=== PATIENT | female | born 1980 | race Caucasian/White ===

== ENCOUNTER → 2018-08-24 | Outpatient (CLI) | payer OTHER ==
[~2018-08-24] MED LIST: IBUP800; PRENZ; TRAACE; Verotin-Gr Cap1 EACH PO
[2018-08-26 15:06] LABS: HPV 16 Negative (Negative); HPV 18 Negative (Negative); HPV OTHER HR TYPES Positive (Negative)
== END | disposition home or self-care (01) ==
LOC: LAB SHORT 15:59 → LAB 15:59
PROVIDERS: Obstetrics & Gynecology
DX: O30.009 Twin pregnancy, unspecified number of placenta and unspecified number of amniotic sacs, unspecified trimester (principal); O09.529 Supervision of elderly multigravida, unspecified trimester
CPT/HCPCS: 87624; 87625; G0123

== ENCOUNTER 2019-01-04 15:36 | Inpatient (IN) | payer OTHER ==
[~2019-01-04] VITALS: Ht 165.1 cm; Wt 101.0 kg
[2019-01-04] MEDS ORDERED: EXPECTA PRENAT1 EACH (16:01)
[2019-01-04 16:33] LABS: BASOPHILS ABSOLUTE AUTO 0.02 K/mm3 (0.00-0.23); BASOPHILS PERCENT AUTO 0 % (0-2); EOSINOPHILS ABSOLUTE AUTO 0.07 K/mm3 (0.00-0.68); EOSINOPHILS PERCENT AUTO 1 % (0-6); Hematocrit 31.9 % (33.0-51.0); Hemoglobin 10.2 g/dL (11.5-16.0); IMMATURE GRAN ABSOLUTE AUTO 0.02 K/mm3 (0.00-0.10); IMMATURE GRAN PERCENT AUTO 0 % (0-1); LYMPHOCYTES ABSOLUTE AUTO 1.25 K/mm3 (0.84-5.20); LYMPHOCYTES PERCENT AUTO 18 % (21-46); MONOCYTES ABSOLUTE AUTO 0.84 K/mm3 (0.16-1.47); MONOCYTES PERCENT AUTO 12 % (4-13); Mean Corpuscular Volume 88 fL (80-100); Mean Platelet Volume 10.1 fL (9.1-12.4); NEUTROPHILS ABSOLUTE AUTO 4.91 K/mm3 (1.96-9.15); NEUTROPHILS PERCENT AUTO 69 % (41-73); Platelet Count 237 K/mm3 (150-400); RDW Coefficient Variation 16.7 % (11.7-14.2); RDW Standard Deviation 53.3 fL (35.1-46.3); Red Blood Cell Count 3.64 M/mm3 (3.80-5.20); White Blood Cell Count 7.11 K/mm3 (4.00-11.30)
[2019-01-05 05:20] LABS: Hemoglobin 9.6 g/dL (11.5-16.0); Mean Corpuscular HGB 28.1 pg (26.0-34.0); Mean Corpuscular Volume 88 fL (80-100); Mean Platelet Volume 10.5 fL (9.1-12.4); Platelet Count 200 K/mm3 (150-400); RDW Coefficient Variation 16.4 % (11.7-14.2); Red Blood Cell Count 3.42 M/mm3 (3.80-5.20)
--- NOTE | 2019-01-05 09:19 | NUR ---
PATIENT SLEEPING, AWAKENED FOR ASSESSMENT. PATIENT DOES NOT WANT TO BE BOTHERED UNTIL SHE WAKES AND WILL USE CALL LIGHT TO GET NURSE.
[2019-01-05] MEDS ORDERED: IBUP800 PO (13:37)
--- NOTE | 2019-01-05 13:39 | NUR ---
PATIENT REFUSED POST FOLLOW UP
== END 2019-01-05 13:58 | disposition home or self-care (01) | DRG 807 ==
LOC: OBS 15:36 → BC 15:37 → OBS 16:01 → BC 16:07
PROVIDERS: ADMIT Obstetrics & Gynecology
PROC: 10E0XZZ Delivery of Products of Conception, External Approach (ICD-10-PCS; principal; 2019-01-04)
PROC: 0KQM0ZZ Repair Perineum Muscle, Open Approach (ICD-10-PCS; 2019-01-04)
PROC: 3E0R3BZ Introduction of Anesthetic Agent into Spinal Canal, Percutaneous Approach (ICD-10-PCS; 2019-01-04)
DX: O60.14X0 Preterm labor third trimester with preterm delivery third trimester, not applicable or unspecified (principal); Z37.0 Single live birth; Z3A.35 35 weeks gestation of pregnancy; O30.043 Twin pregnancy, dichorionic/diamniotic, third trimester; O99.824 Streptococcus B carrier state complicating childbirth; O70.1 Second degree perineal laceration during delivery
CPT/HCPCS: 36415; 51702; 85025; 85027; 87210; 88307; J0290; J1885; J2001; J2210; J2405; J2590; J3010; J7120

== ENCOUNTER 2019-04-05 08:04 | Day surgery (SDC) | payer OTHER ==
[~2019-04-05] VITALS: Ht 165.1 cm; Wt 90.0 kg
[~2019-04-05 08:04] MED LIST changes: +EXPECTA PRENAT1 EACH; +IBUP800 PO
--- NOTE | 2019-04-05 08:57 | NUR ---
Ambulatory in Day Surgery. Surgical site prepped with 2% Chlorhexidine cloth wipe. History, Chart, Medications and Allergies reviewed before start of procedure. Lungs clear T/O to Auscultation. Patient confirms NPO status and agrees with scheduled surgery. Pre-Op teaching done. Pt verbalizes understanding. Patient States Post-Procedure ride home has been arranged. Patient reports completing Chlorhexadine shower X2 prior to admission to hospital.
--- NOTE | 2019-04-05 11:10 | NUR ---
INTO STEP VIA RAH. PT A&0 X3. DENIES PAIN OR NAUSEA AT THIS TIME. GAUZE X 2 AND STERI STRIPS X 1 TO ABDOMEN C/D/I. EDSON PAD IN PLACE-NO NOTED DRAINAGE.
--- NOTE | 2019-04-05 12:03 | NUR ---
Patient up to Ambulate independently. Gait steady. Dressing to procedure site clean, dry, intact with no visible drainage, swelling, erythema or bruising noted. Discharge instructions reviewed with patient. Patient verbalizes understanding. Copy given to patient to take home.PT AMBULATED TO BRP WITHOUT DIFFICULTY. ABLE TO VOID. WHILE CHANGING INTO HER CLOTHING, PT VOMITED X1. SHE STATES THAT SHE FEEL DIZZY. ASSISTED BACK TO BED AND MED WITH REGLAN 10 MG IVPX1-SEE EMAR.
--- NOTE | 2019-04-05 12:15 | NUR ---
PT GIVEN 500 CC OF LR AND RESTED FOR APROX 10 MIN AFTER THE REGLAN WAS GIVEN. SBP 120'S. PT STATES THAT THE NAUSEA HAD RESOLVED AND NOW ONLY MILDY DIZZY. ASSISTED PT TO SIT AT THE BEDSIDE-TOLERATED WELL. SHE STATES THAT SHE IS "OK." PT DISCHARGED TO HOME. OUT VIA WHEELCHAIR-BELONGINGS ON HAND. PT SPOUSE HAS HER DISCHARGE INSTRUCTIONS.
--- NOTE | 2019-04-05 12:54 | NUR ---
04/05/19 1254 Adrienne Pierson NO PRE OP ANTIBIOTICS PER DR CARRILLO ORDERS.
== END 2019-04-05 12:18 | disposition home or self-care (01) ==
LOC: ORSCMMR 08:04 → ORD 09:30 → ORSCMMR 09:30
PROVIDERS: Obstetrics & Gynecology
PROC: 0UB74ZZ Excision of Bilateral Fallopian Tubes, Percutaneous Endoscopic Approach (ICD-10-PCS; principal; 2019-04-05 09:30)
DX: Z30.2 Encounter for sterilization (principal); E66.9 Obesity, unspecified; Z68.33 Body mass index [BMI] 33.0-33.9, adult
CPT/HCPCS: 87081; 88302; J0330; J1100; J1885; J2250; J2405; J2704; J2765; J3010; J7120

== ENCOUNTER → 2019-09-03 | Outpatient (CLI) | payer OTHER ==
[2019-09-08 18:07] LABS: HPV 16 Negative (Negative); HPV 18 Negative (Negative); HPV OTHER HR TYPES Positive (Negative)
== END | disposition home or self-care (01) ==
LOC: LAB 16:26 → LAB SHORT 16:26
PROVIDERS: Obstetrics & Gynecology
DX: Z01.419 Encounter for gynecological examination (general) (routine) without abnormal findings (principal)
CPT/HCPCS: 87624; 87625; G0123

== ENCOUNTER → 2021-03-13 | Outpatient (CLI) | payer OTHER ==
[2021-03-14 17:10] LABS: HPV 16 Negative (Negative); HPV 18 Negative (Negative); HPV OTHER HR TYPES Positive (Negative)
== END ==
LOC: LAB 16:41 → LAB SHORT 16:41
PROVIDERS: Family Medicine
DX: R87.810 Cervical high risk human papillomavirus (HPV) DNA test positive (principal); R87.612 Low grade squamous intraepithelial lesion on cytologic smear of cervix (LGSIL); Z88.8 Allergy status to other drugs, medicaments and biological substances
CPT/HCPCS: 87624; 87625; 88142

== ENCOUNTER 2021-04-18 12:44 | Emergency (ER) | payer OTHER ==
[~2021-04-18] VITALS: Ht 165.1 cm; Wt 83.9 kg
[2021-04-18 13:08] LABS: Source, Urine Clean Catch
[2021-04-18 13:12] LABS: Appearance, Urine Clear (Clear); Bilirubin, Urine Neg (Neg); Blood, Urine Neg (Neg); Glucose Qualitative, Urine Neg (Neg); Ketones, Urine Neg (Neg); Leukocyte Esterase, Urine Neg (Neg); Nitrite, Urine Neg (Neg); Protein, Urine Neg (Neg); Specific Gravity, Urine 1.015 (1.003-1.022); Urobilinogen, Urine NORM (Normal)
[2021-04-18 13:30] LABS: BASOPHILS ABSOLUTE AUTO 0.04 K/mm3 (0.00-0.23); BASOPHILS PERCENT AUTO 1 % (0-2); EOSINOPHILS ABSOLUTE AUTO 0.14 K/mm3 (0.00-0.68); EOSINOPHILS PERCENT AUTO 2 % (0-6); Hematocrit 37.4 % (33.0-51.0); Hemoglobin 12.2 g/dL (11.5-16.0); IMMATURE GRAN ABSOLUTE AUTO 0.01 K/mm3 (0.00-0.10); IMMATURE GRAN PERCENT AUTO 0 % (0-1); LYMPHOCYTES ABSOLUTE AUTO 1.85 K/mm3 (0.84-5.20); LYMPHOCYTES PERCENT AUTO 29 % (21-46); MONOCYTES ABSOLUTE AUTO 0.52 K/mm3 (0.16-1.47); MONOCYTES PERCENT AUTO 8 % (4-13); Mean Corpuscular HGB 28.6 pg (26.0-34.0); Mean Corpuscular HGB Conc 32.6 g/dL (31.5-36.5); Mean Corpuscular Volume 88 fL (80-100); Mean Platelet Volume 9.5 fL (9.1-12.4); NEUTROPHILS ABSOLUTE AUTO 3.94 K/mm3 (1.96-9.15); NEUTROPHILS PERCENT AUTO 61 % (41-73); Platelet Count 331 K/mm3 (150-400); RDW Coefficient Variation 13.3 % (11.7-14.2); RDW Standard Deviation 42.7 fL (35.1-46.3); Red Blood Cell Count 4.26 M/mm3 (3.80-5.20)
[2021-04-18 13:39] LABS: Color, Urine Pale Yellow (P-Yellow)
[2021-04-18 14:15] LABS: Alanine Aminotransfer (ALT/SGP 25 U/L (12-78); Albumin, Blood 3.7 g/dL (3.4-5.0); Albumin/Globulin Ratio 1.1 (0.8-1.8); Alk Phos 69 U/L (50-136); Anion Gap 8 mmol/L (6-16); Aspartate Aminotrans (AST/SGOT 14 U/L (12-37); Bilirubin, Total 0.4 mg/dL (0.1-1.0); Blood Urea Nitrogen 14 mg/dL (8-24); Bun/Creatinine Ratio 22.4 (12.0-20.0); CO2, Blood 27 mmol/L (21-32); Chloride, Blood 107 mmol/L (98-108); Creatinine, Blood 0.63 mg/dL (0.40-1.00); Globulin, Blood 3.4 g/dL (2.2-4.0); Glomerular Filtration Rate >60 (60-); Glucose, Blood 93 mg/dL (70-99); Potassium, Blood 4.2 mmol/L (3.5-5.5); Sodium, Blood 142 mmol/L (136-145); Total Protein, Blood 7.1 g/dL (6.4-8.2)
== END 2021-04-18 15:33 | disposition home or self-care (01) ==
LOC: ER 12:44
PROVIDERS: Physician Assistant
DX: R51.9 Headache, unspecified (principal); R40.4 Transient alteration of awareness; Z88.8 Allergy status to other drugs, medicaments and biological substances
CPT/HCPCS: 36415; 70450; 80053; 81003; 81025; 85025; 93005; 93010; 96374; 96375; 99284-25; J1885; J2405

== ENCOUNTER → 2022-08-29 | Outpatient (CLI) | payer OTHER | END | disposition home or self-care (01) | LOC: LAB 09:26 → LAB SHORT 09:26 | DX: O09.892 Supervision of other high risk pregnancies, second trimester (principal) | CPT/HCPCS: 87081; 87150 ==

== ENCOUNTER 2022-09-16 06:37 | Inpatient (IN) | payer OTHER ==
[2022-09-16] VITALS (43 sets, daily range): BP systolic 111–146; BP diastolic 57–92
[~2022-09-16] VITALS: Ht 165.1 cm; Wt 99.3 kg
[2022-09-16] MEDS ORDERED: PRENATAL TABLE1 EAC2 PO (07:37)
[2022-09-16] MEDS ORDERED: Vitamin B-625 MG (07:38)
[2022-09-16] MEDS ORDERED: IRON18 MG (07:38)
[2022-09-16] MEDS ORDERED: Aspir 8181 MG PO (07:39)
[2022-09-16 07:41] LABS: BASOPHILS ABSOLUTE AUTO 0.03 K/mm3 (0.00-0.23); BASOPHILS PERCENT AUTO 1 % (0-2); EOSINOPHILS ABSOLUTE AUTO 0.25 K/mm3 (0.00-0.68); EOSINOPHILS PERCENT AUTO 5 % (0-6); Hematocrit 33.4 % (33.0-51.0); IMMATURE GRAN ABSOLUTE AUTO 0.03 K/mm3 (0.00-0.10); IMMATURE GRAN PERCENT AUTO 1 % (0-1); LYMPHOCYTES ABSOLUTE AUTO 1.46 K/mm3 (0.84-5.20); LYMPHOCYTES PERCENT AUTO 30 % (21-46); MONOCYTES ABSOLUTE AUTO 0.81 K/mm3 (0.16-1.47); MONOCYTES PERCENT AUTO 17 % (4-13); Mean Corpuscular HGB 28.3 pg (26.0-34.0); Mean Corpuscular HGB Conc 32.9 g/dL (31.5-36.5); Mean Corpuscular Volume 86 fL (80-100); Mean Platelet Volume 9.7 fL (9.1-12.4); NEUTROPHILS ABSOLUTE AUTO 2.25 K/mm3 (1.96-9.15); NEUTROPHILS PERCENT AUTO 47 % (41-73); Platelet Count 266 K/mm3 (150-400); RDW Coefficient Variation 17.4 % (11.7-14.2); RDW Standard Deviation 54.6 fL (35.1-46.3); Red Blood Cell Count 3.89 M/mm3 (3.80-5.20); White Blood Cell Count 4.83 K/mm3 (4.00-11.30)
[2022-09-16 21:05] LABS: PCO2 Cord - Arterial 57.4 mmHg (40-50); PO2 Cord - Arterial <5 mmHg (16-20); pH Cord - Arterial 7.23 (7.28-7.35)
[2022-09-16 21:10] LABS: PCO2 Cord - Venous 45.2 mmHg (40-50); PO2 Cord - Venous 22.3 mmHg (28-32); pH Umbilical Cord - Venous 7.32 (7.26-7.35)
[2022-09-17 00:16] VITALS: BP 131/61
[2022-09-17 03:57] VITALS: BP 121/65
[2022-09-17 05:37] LABS: Hematocrit 28.9 % (33.0-51.0); Hemoglobin 9.7 g/dL (11.5-16.0); Mean Corpuscular HGB 28.4 pg (26.0-34.0); Mean Corpuscular HGB Conc 33.6 g/dL (31.5-36.5); Mean Corpuscular Volume 85 fL (80-100); Mean Platelet Volume 9.9 fL (9.1-12.4); Platelet Count 229 K/mm3 (150-400); RDW Coefficient Variation 16.9 % (11.7-14.2); RDW Standard Deviation 52.5 fL (35.1-46.3); Red Blood Cell Count 3.41 M/mm3 (3.80-5.20); White Blood Cell Count 10.36 K/mm3 (4.00-11.30)
[2022-09-17 08:50] VITALS: BP 121/74
[2022-09-17 12:05] VITALS: BP 121/58
== END 2022-09-17 14:05 | disposition home or self-care (01) | DRG 806 ==
LOC: BC 06:37 → OBS 06:37 → BC 06:45
PROVIDERS: ADMIT Obstetrics & Gynecology
PROC: 10E0XZZ Delivery of Products of Conception, External Approach (ICD-10-PCS; principal; 2022-09-16)
PROC: 00HU33Z Insertion of Infusion Device into Spinal Canal, Percutaneous Approach (ICD-10-PCS; 2022-09-16)
PROC: 3E0R3BZ Introduction of Anesthetic Agent into Spinal Canal, Percutaneous Approach (ICD-10-PCS; 2022-09-16)
PROC: 3E033VJ Introduction of Other Hormone into Peripheral Vein, Percutaneous Approach (ICD-10-PCS; 2022-09-16)
PROC: 0HQ9XZZ Repair Perineum Skin, External Approach (ICD-10-PCS; 2022-09-16)
PROC: 4A033R1 Measurement of Arterial Saturation, Peripheral, Percutaneous Approach (ICD-10-PCS; 2022-09-16)
PROC: 10907ZC Drainage of Amniotic Fluid, Therapeutic from Products of Conception, Via Natural or Artificial Opening (ICD-10-PCS; 2022-09-16)
PROC: 3E0R3NZ Introduction of Analgesics, Hypnotics, Sedatives into Spinal Canal, Percutaneous Approach (ICD-10-PCS; 2022-09-16)
DX: O30.043 Twin pregnancy, dichorionic/diamniotic, third trimester (principal); D62 Acute posthemorrhagic anemia; Z37.2 Twins, both liveborn; O99.214 Obesity complicating childbirth; O70.0 First degree perineal laceration during delivery; O32.1XX0 Maternal care for breech presentation, not applicable or unspecified; Z79.82 Long term (current) use of aspirin; R03.0 Elevated blood-pressure reading, without diagnosis of hypertension; Z90.722 Acquired absence of ovaries, bilateral; Z88.8 Allergy status to other drugs, medicaments and biological substances; Z3A.38 38 weeks gestation of pregnancy; Z67.40 Type O blood, Rh positive; Z79.899 Other long term (current) drug therapy; O43.123 Velamentous insertion of umbilical cord, third trimester
CPT/HCPCS: 36415; 51702; 82803; 85025; 85027; 86850; 86900; 86901; 86923; 88307; A9270; J1885; J2210; J2405; J2590; J7120

== ENCOUNTER → 2023-03-21 | Outpatient (CLI) | payer OTHER ==
[~2023-03-21] MED LIST changes: +Aspir 8181 MG PO; +IRON18 MG; +NIFE30ER PO; +PRENATAL DHA200 MG; +PRENATAL TABLE1 EAC2 PO; +Vitamin B-625 MG
[2023-03-21 19:35] LABS: BASOPHILS ABSOLUTE AUTO 0.03 K/mm3 (0.00-0.23); BASOPHILS PERCENT AUTO 0 % (0-2); EOSINOPHILS ABSOLUTE AUTO 0.33 K/mm3 (0.00-0.68); EOSINOPHILS PERCENT AUTO 5 % (0-6); Hematocrit 37.5 % (33.0-51.0); Hemoglobin 12.1 g/dL (11.5-16.0); IMMATURE GRAN ABSOLUTE AUTO 0.02 K/mm3 (0.00-0.10); IMMATURE GRAN PERCENT AUTO 0 % (0-1); LYMPHOCYTES ABSOLUTE AUTO 2.13 K/mm3 (0.84-5.20); LYMPHOCYTES PERCENT AUTO 30 % (21-46); MONOCYTES ABSOLUTE AUTO 0.77 K/mm3 (0.16-1.47); MONOCYTES PERCENT AUTO 11 % (4-13); Mean Corpuscular HGB 27.8 pg (26.0-34.0); Mean Corpuscular HGB Conc 32.3 g/dL (31.5-36.5); Mean Corpuscular Volume 86 fL (80-100); Mean Platelet Volume 9.3 fL (9.1-12.4); NEUTROPHILS ABSOLUTE AUTO 3.81 K/mm3 (1.96-9.15); NEUTROPHILS PERCENT AUTO 54 % (41-73); Platelet Count 356 K/mm3 (150-400); RDW Coefficient Variation 13.1 % (11.7-14.2); RDW Standard Deviation 41.1 fL (35.1-46.3); Red Blood Cell Count 4.36 M/mm3 (3.80-5.20); White Blood Cell Count 7.09 K/mm3 (4.00-11.30)
[2023-03-21 19:51] LABS: Percent Saturation 14.6 % (15.0-50.0)
[2023-03-21 19:56] LABS: Thyroid Stimulating Hormone 1.28 uIU/mL (0.360-4.800)
== END | disposition home or self-care (01) ==
LOC: LAB SHORT 17:56 → LAB 17:56
PROVIDERS: Obstetrics & Gynecology
DX: Z01.419 Encounter for gynecological examination (general) (routine) without abnormal findings (principal); N93.8 Other specified abnormal uterine and vaginal bleeding
CPT/HCPCS: 82728; 83540; 83550; 84443; 85025

== ENCOUNTER → 2023-04-24 | Outpatient (CLI) | payer OTHER | LOC: LAB 07:53 → LAB SHORT 07:53 | DX: R87.613 High grade squamous intraepithelial lesion on cytologic smear of cervix (HGSIL) (principal); N72 Inflammatory disease of cervix uteri | CPT/HCPCS: 88305; 88342 ==

== ENCOUNTER → 2023-05-06 | Outpatient (CLI) | payer OTHER | LOC: LAB SHORT 08:09 → LAB 08:09 | DX: N85.00 Endometrial hyperplasia, unspecified (principal) | CPT/HCPCS: 88305 ==

== ENCOUNTER → 2023-05-22 | Outpatient (CLI) | payer OTHER ==
[2023-05-22 14:10] LABS: BASOPHILS ABSOLUTE AUTO 0.04 K/mm3 (0.00-0.23); BASOPHILS PERCENT AUTO 1 % (0-2); EOSINOPHILS ABSOLUTE AUTO 0.12 K/mm3 (0.00-0.68); EOSINOPHILS PERCENT AUTO 1 % (0-6); Hemoglobin 13.1 g/dL (11.5-16.0); IMMATURE GRAN ABSOLUTE AUTO 0.02 K/mm3 (0.00-0.10); IMMATURE GRAN PERCENT AUTO 0 % (0-1); LYMPHOCYTES ABSOLUTE AUTO 2.25 K/mm3 (0.84-5.20); LYMPHOCYTES PERCENT AUTO 26 % (21-46); MONOCYTES ABSOLUTE AUTO 0.69 K/mm3 (0.16-1.47); MONOCYTES PERCENT AUTO 8 % (4-13); Mean Corpuscular HGB 27.6 pg (26.0-34.0); Mean Corpuscular Volume 86 fL (80-100); Mean Platelet Volume 10.4 fL (9.1-12.4); NEUTROPHILS ABSOLUTE AUTO 5.48 K/mm3 (1.96-9.15); NEUTROPHILS PERCENT AUTO 64 % (41-73); Platelet Count 406 K/mm3 (150-400); RDW Coefficient Variation 15.6 % (11.7-14.2); RDW Standard Deviation 48.9 fL (35.1-46.3); Red Blood Cell Count 4.75 M/mm3 (3.80-5.20)
== END ==
LOC: LAB SHORT 12:58 → LAB 12:58
PROVIDERS: Obstetrics & Gynecology
DX: Z78.9 Other specified health status (principal)
CPT/HCPCS: 85025; 86850; 86900; 86901

== ENCOUNTER 2023-06-04 10:05 | Day surgery (SDC) | payer OTHER ==
[~2023-06-04] VITALS: Ht 166 cm; Wt 88.1 kg
[2023-06-04] VITALS (11 sets, daily range): BP systolic 108–144; BP diastolic 75–89
[~2023-06-04 10:05] MED LIST changes: +Lactated Ringer's 1,000 ML IV SCH
[2023-06-04] MEDS ORDERED: propofoL 20 ML IV ONE (10:33)
[2023-06-04] MEDS ORDERED: FentaNYL Citrate 50 MCG/ML 2 ML Injection ONE (10:34)
[2023-06-04] MEDS ORDERED: Midazolam HCl 1MG / ML 2ML Vial IV ONE (10:40)
[2023-06-04] MEDS ORDERED: Ondansetron HCl 2 MG / ML 2ML Vial IV PRN (10:40)
[2023-06-04] MEDS ORDERED: FentaNYL Citrate 50 MCG/ML 2 ML Injection IV PRN ×3 (10:40)
[2023-06-04] MEDS ORDERED: Lidocaine HCl 1% 5 ML SYR INJ ONE (10:40)
[2023-06-04] MEDS ORDERED: VALACYCLOVIR1000 M1 PO (11:03)
[2023-06-04] MEDS ORDERED: FERROUS SULFAT325 M3 PO (11:06)
[2023-06-04] MEDS ORDERED: Bupivacaine 0.5% HCl 5 MG/ML 30MLVIAL ONE (11:14)
--- NOTE | 2023-06-04 11:16 | NUR ---
History, Chart, Medications and Allergies reviewed before start of procedure. Patient up to Ambulate independently. Gait steady. Pre-Op teaching done. Pt verbalizes understanding. Patient confirms NPO status and agrees with scheduled surgery. Lungs clear T/O to Auscultation. Patient States Post-Procedure ride home has been arranged.
[2023-06-04] MEDS ORDERED: Phenylephrine HCl 100 MCG/ML-NS 10MLSYR (1MG/10ML) ONE (11:36)
[2023-06-04] MEDS ORDERED: EpiNEPhrine 1 MG/1 ML 1ML Vial ONE (11:47)
[2023-06-04] MEDS ORDERED: Ondansetron HCl 2 MG / ML 2ML Vial ONE (11:51)
[2023-06-04] MEDS ORDERED: Dexamethasone Sod Phos 10 MG/ML 1ML VIAL ONE (11:51)
--- NOTE | 2023-06-04 11:56 | NUR ---
06/04/23 1156 Christiana Mendoza 30MLS OF BUPIVACAINE 0.5% MIXED WITH 0.15MLS OF EPI TO CREATE A LOCAL SOLUTION OF BUPIVACAINE 0.5% WITH EPI 1:200,000, BY DR. ROSALES. LOCAL POURED ONTO STERILE FIELD FOR USE DURING CASE.
[2023-06-04] MEDS ORDERED: Ketorolac Tromethamine 30mg Vial ONE (12:40)
[2023-06-04] MEDS ORDERED: OxyCODONE HCL 5 MG TAB PO PRN (12:45)
[2023-06-04] MEDS ORDERED: Acetaminophen 500 MG Tab PO ONE (12:45)
--- NOTE | 2023-06-04 13:10 | NUR ---
PT TO DAY SURGERY STEP DOWN FROM PACU. BEDSIDE REPORT RECEIEVED. PT IS AWAKE, ALERT AND ORIENTED; ABLE TO MOVE SELF IN BED. PT HAS CLEAN EDSON PAD IN PLACE. PT DENIES PAIN AT THIS TIME. VSS. PT WILL BE HER RIDE AND IS AT BEDSIDE.
--- NOTE | 2023-06-04 13:25 | NUR ---
PT TOLERATING PO FLUIDS WELL. Discharge instructions reviewed with patient. Patient verbalizes understanding. Copy given to patient to take home.
--- NOTE | 2023-06-04 13:37 | NUR ---
Patient up to Ambulate independently. Gait steady. PT UP TO BATHROOM, ABLE TO VOID WITHOUT ANY DIFFICULTY.
--- NOTE | 2023-06-04 13:40 | NUR ---
Discharged via wheelchair to private car for ride home.
== END 2023-06-04 13:40 | disposition home or self-care (01) ==
LOC: ORSCMMR 10:05 → ORD 11:30 → ORSCMMR 13:40
PROVIDERS: Obstetrics & Gynecology
PROC: 0UBC7ZX Excision of Cervix, Via Natural or Artificial Opening, Diagnostic (ICD-10-PCS; principal; 2023-06-04 11:30)
DX: R87.619 Unspecified abnormal cytological findings in specimens from cervix uteri (principal)
CPT/HCPCS: 86850; 86900; 86901; J0171; J1100; J1885; J2250; J2371; J2405; J2704; J3010; J7120

== ENCOUNTER → 2023-11-28 | Outpatient (CLI) | payer OTHER ==
[~2023-11-28] MED LIST changes: +FERROUS SULFAT325 M3 PO; -Lactated Ringer's 1,000 ML IV SCH; +VALACYCLOVIR1000 M1 PO
[2023-11-28 18:56] LABS: BASOPHILS ABSOLUTE AUTO 0.05 K/mm3 (0.00-0.23); BASOPHILS PERCENT AUTO 1 % (0-2); EOSINOPHILS PERCENT AUTO 4 % (0-6); Hematocrit 36.7 % (33.0-51.0); Hemoglobin 11.7 g/dL (11.5-16.0); IMMATURE GRAN ABSOLUTE AUTO 0.02 K/mm3 (0.00-0.10); IMMATURE GRAN PERCENT AUTO 0 % (0-1); LYMPHOCYTES ABSOLUTE AUTO 2.42 K/mm3 (0.84-5.20); LYMPHOCYTES PERCENT AUTO 34 % (21-46); MONOCYTES PERCENT AUTO 10 % (4-13); Mean Corpuscular HGB 27.1 pg (26.0-34.0); Mean Corpuscular HGB Conc 31.9 g/dL (31.5-36.5); Mean Corpuscular Volume 85 fL (80-100); NEUTROPHILS ABSOLUTE AUTO 3.74 K/mm3 (1.96-9.15); NEUTROPHILS PERCENT AUTO 52 % (41-73); Platelet Count 404 K/mm3 (150-400); RDW Coefficient Variation 15.6 % (11.7-14.2); RDW Standard Deviation 47.9 fL (35.1-46.3); Red Blood Cell Count 4.31 M/mm3 (3.80-5.20); White Blood Cell Count 7.23 K/mm3 (4.00-11.30)
[2023-12-03 17:21] LABS: HPV HIGH RISK BY TMA Not Detected; HPV SOURCE Cervical
== END ==
LOC: LAB SHORT 17:24 → LAB 17:24
PROVIDERS: Obstetrics & Gynecology
DX: D06.9 Carcinoma in situ of cervix, unspecified (principal); N93.9 Abnormal uterine and vaginal bleeding, unspecified
CPT/HCPCS: 82728; 83540; 83550; 85025; 87624; G0123

== ENCOUNTER 2024-01-03 22:09 | Emergency (ER) | payer OTHER ==
[~2024-01-03] VITALS: Ht 165.1 cm; Wt 88.9 kg
[2024-01-03] MEDS ORDERED: FentaNYL Citrate 50 MCG/ML 2 ML Injection IV ONE (23:10)
[2024-01-03 23:11] LABS: BASOPHILS ABSOLUTE AUTO 0.04 K/mm3 (0.00-0.23); BASOPHILS PERCENT AUTO 0 % (0-2); EOSINOPHILS ABSOLUTE AUTO 0.24 K/mm3 (0.00-0.68); EOSINOPHILS PERCENT AUTO 2 % (0-6); Hematocrit 36.1 % (33.0-51.0); Hemoglobin 11.6 g/dL (11.5-16.0); IMMATURE GRAN ABSOLUTE AUTO 0.03 K/mm3 (0.00-0.10); IMMATURE GRAN PERCENT AUTO 0 % (0-1); LYMPHOCYTES ABSOLUTE AUTO 2.08 K/mm3 (0.84-5.20); LYMPHOCYTES PERCENT AUTO 20 % (21-46); MONOCYTES ABSOLUTE AUTO 0.83 K/mm3 (0.16-1.47); MONOCYTES PERCENT AUTO 8 % (4-13); Mean Corpuscular HGB 27.6 pg (26.0-34.0); Mean Corpuscular HGB Conc 32.1 g/dL (31.5-36.5); Mean Corpuscular Volume 86 fL (80-100); Mean Platelet Volume 9.5 fL (9.1-12.4); NEUTROPHILS ABSOLUTE AUTO 6.96 K/mm3 (1.96-9.15); NEUTROPHILS PERCENT AUTO 68 % (41-73); Platelet Count 344 K/mm3 (150-400); RDW Coefficient Variation 15.1 % (11.7-14.2); RDW Standard Deviation 48.1 fL (35.1-46.3); White Blood Cell Count 10.18 K/mm3 (4.00-11.30)
[2024-01-03 23:35] LABS: Albumin, Blood 3.8 g/dL (3.4-5.0); Albumin/Globulin Ratio 1.1 (0.8-1.8); Bilirubin, Total 0.2 mg/dL (0.1-1.0); Bun/Creatinine Ratio 19.9 (12.0-20.0); Calcium, Blood 9.4 mg/dL (8.5-10.1); Creatinine, Blood 0.91 mg/dL (0.40-1.00); Globulin, Blood 3.5 g/dL (2.2-4.0); Total Protein, Blood 7.3 g/dL (6.4-8.2)
[2024-01-04 00:17] LABS: Source, Urine Clean Catch
[2024-01-04 00:22] LABS: Bilirubin, Urine Neg (Neg); Blood, Urine 2+ (Neg); Glucose Qualitative, Urine Neg (Neg); Ketones, Urine Neg (Neg); Leukocyte Esterase, Urine Neg (Neg); Nitrite, Urine Neg (Neg); Protein, Urine Neg (Neg); Specific Gravity, Urine 1.005 (1.003-1.022); Urobilinogen, Urine NORM (Normal)
[2024-01-04 00:27] LABS: Appearance, Urine Clear (Clear); Color, Urine Pale Yellow (P-Yellow)
[2024-01-04 00:28] LABS: Bacteria Few /hpf; Red Blood Cells, Urine 0-2 /hpf (0-2); Squamous Epithelial Cells Few /hpf (Few); White Blood Cells, Urine 0-2 /hpf (0-5)
[2024-01-04 01:44] LABS: Influenza A, PCR NEGATIVE (NEGATIVE); Influenza B, PCR NEGATIVE (NEGATIVE); Resp Syncytial Virus, PCR NEGATIVE (NEGATIVE); SARS-Cov-2 (COVID-19) PCR, MMC NEGATIVE (NEGATIVE)
[2024-01-04] MEDS ORDERED: Ketorolac Tromethamine 30mg Vial IV ONE (03:55)
[2024-01-04 04:00] VITALS: BP 124/86
== END 2024-01-04 04:16 | disposition home or self-care (01) ==
LOC: ER 22:09
PROVIDERS: Physician Assistant; Student in an Organized Health Care Education/Training Program
DX: R68.84 Jaw pain (principal); M25.551 Pain in right hip; M25.552 Pain in left hip; Z88.8 Allergy status to other drugs, medicaments and biological substances; Z79.899 Other long term (current) drug therapy; G43.909 Migraine, unspecified, not intractable, without status migrainosus
CPT/HCPCS: 0241U; 71045; 72170; 80053; 81001; 81025; 83735; 84484; 85025; 93005; 93010; 96374; 96375; 99284-25; J1885; J3010

== ENCOUNTER 2024-02-16 06:23 | Day surgery (SDC) | payer OTHER ==
[2024-02-16] VITALS (16 sets, daily range): BP systolic 108–144; BP diastolic 72–92
[~2024-02-16] VITALS: Ht 165.1 cm; Wt 90.7 kg
--- NOTE | 2024-02-16 06:22 | NUR ---
NO HCG INDICATED PER POLICY PATIENT HAS UNDERGONE STERILIZATION SURGERY PER DR BENITES H&P.
[~2024-02-16 06:23] MED LIST changes: +CeFAZolin Sodium 2,000 MG in NS 100 ML IV SCH; +Lactated Ringer's 1,000 ML IV SCH
[2024-02-16] MEDS ORDERED: Phenazopyridine HCl 100 MG Tab PO SCH (06:25)
[2024-02-16] MEDS ORDERED: IBUP200 PO (06:37)
[2024-02-16] MEDS ORDERED: CeFAZolin Sodium 2,000 MG VIAL ONE (06:42)
[2024-02-16] MEDS ORDERED: propofoL 20 ML IV ONE (06:52)
[2024-02-16] MEDS ORDERED: FentaNYL Citrate 50 MCG/ML 2 ML Injection ONE (06:52)
[2024-02-16] MEDS ORDERED: Bupivacaine 0.5% HCl 5 MG/ML 30MLVIAL ONE (07:06)
[2024-02-16] MEDS ORDERED: FentaNYL Citrate 50 MCG/ML 2 ML Injection IV PRN ×2 (07:10→07:15)
[2024-02-16] MEDS ORDERED: Lidocaine HCl 1% 5 ML SYR INJ ONE (07:10)
[2024-02-16] MEDS ORDERED: Labetalol HCL 5 MG/ML 4ML Injection (Single Dose) IV PRN (07:10)
[2024-02-16] MEDS ORDERED: Lactated Ringer's 1,000 ML IV SCH (07:10)
[2024-02-16] MEDS ORDERED: HYDROmorphone HCl/Pf 1MG SYR IV PRN ×3 (07:10→10:25)
[2024-02-16] MEDS ORDERED: Albuterol 2.5 MG/3 ML VIAL INH PRN (07:15)
[2024-02-16] MEDS ORDERED: Ondansetron HCl 2 MG / ML 2ML Vial IV PRN ×2 (07:15→10:30)
[2024-02-16] MEDS ORDERED: HydrALAZINE HCl 20 MG / ML 1ML Vial IV PRN (07:15)
--- NOTE | 2024-02-16 07:21 | NUR ---
History, Chart, Medications and Allergies reviewed before start of procedure. Patient confirms NPO status and agrees with scheduled surgery.
[2024-02-16] MEDS ORDERED: Scopolamine Hydrobromide Patch TOP ONE (07:25)
[2024-02-16] MEDS ORDERED: Ondansetron HCl 2 MG / ML 2ML Vial ONE (07:54)
[2024-02-16] MEDS ORDERED: Rocuronium Bromide 10 MG/ML 5ML Injection IV ONE ×2 (07:54→08:03)
[2024-02-16] MEDS ORDERED: Dexamethasone Sod Phos 10 MG/ML 1ML VIAL ONE (07:54)
[2024-02-16] MEDS ORDERED: HYDROmorphone HCl/Pf 1MG SYR ONE (08:47)
--- NOTE | 2024-02-16 09:02 | NUR ---
02/16/24901 Nan Zendejas NOTED SMALL CIRCULAR SCAB LIKE TISSUE UNDER PATIENT'S RIGHT BREAST PRIOR TO SURGICAL PREP. AWARE. DRESSED WITH TEGADERM BY PROVIDER.
[2024-02-16] MEDS ORDERED: Sugammadex Sodium 200 MG/2ML SDV (100 MG/ML) ONE (09:16)
[2024-02-16] MEDS ORDERED: Ketorolac Tromethamine 30mg Vial ONE (09:24)
[2024-02-16] MEDS ORDERED: Ibuprofen 400 MG Tab PO PRN (10:25)
[2024-02-16] MEDS ORDERED: FLU VACC TS2024-25(6MOS UP)/PF 45 MCG/0.5 ML SYRINGE IM SCH (10:25)
[2024-02-16] MEDS ORDERED: Metoclopramide HCl 10 MG Tab PO PRN (10:30)
[2024-02-16] MEDS ORDERED: Naloxone HCl 0.4MG / ML 1ML Vial IV PRN (10:30)
[2024-02-16] MEDS ORDERED: Simethicone 80 MG Chew PO PRN (10:30)
[2024-02-16] MEDS ORDERED: OxyCODONE HCL 5 MG TAB PO PRN ×2 (10:30)
--- NOTE | 2024-02-16 10:30 | NUR ---
ASSUMED CARE ASSUMED CARE OF PT FROM PACU POST HYSTERECTOMY. PT DROWSY UPON ARRIVAL, BUT WAKES TO VERBAL STIMULI. VS STABLE. SCANT AMOUNT OF BLOOD ON ESTHER PAD UNDER PATIENT. PT CLEANED AND EDSON PAD IN PLACE. PT DENIES PAIN AT THIS TIME. 4 INCISION SITES TO ABD CLEAN AND NO BLEEDING NOTED. PT ORIENTED TO ROOM.
[2024-02-16] MEDS ORDERED: DiphenhydrAMINE HCL 25 MG Cap PO PRN (10:35)
[2024-02-16] MEDS ORDERED: Acetaminophen 500 MG Tab PO SCH (12:00)
[2024-02-16] MEDS ORDERED: Ketorolac Tromethamine 30mg Vial IV SCH (12:00)
--- NOTE | 2024-02-16 16:25 | NUR ---
UPDATE PT VOIDED. PT UP WALKING TO BATHROOM. PT REPORTS PAIN IS TOLERABLE. PT TOLERATING PO INTAKE. DISCHARGE INSTRUCTIONS PROVIDED TO PT. ALL QUESTIONS ANSWERED. PT TAKEN OUT VIA WC
[2024-02-17] MEDS ORDERED: Polyethylene Glycol 3350 17 gm PO SCH (09:00)
[2024-02-17] MEDS ORDERED: Enoxaparin 40 MG/0.4 ML SYR SC SCH (09:00)
== END 2024-02-16 16:35 | disposition home or self-care (01) ==
LOC: ORSCMMR 06:23 → ORD 07:30 → SURS 10:24 → ORSCMMR 16:35
PROVIDERS: Obstetrics & Gynecology
PROC: 0UT9FZZ Resection of Uterus, Via Natural or Artificial Opening With Percutaneous Endoscopic Assistance (ICD-10-PCS; principal; 2024-02-16 07:30)
DX: N93.9 Abnormal uterine and vaginal bleeding, unspecified (principal); E66.9 Obesity, unspecified; Z68.33 Body mass index [BMI] 33.0-33.9, adult
CPT/HCPCS: 86850; 86900; 86901; 88307; A9270; J0690; J1100; J1171; J1885; J2405; J2704; J3010; J7120